=== PATIENT | male | born 1985 | race Hispanic/Latino ===

== ENCOUNTER → 2025-03-25 | Outpatient (REF) | payer BC ==
[~2025-03-25] MED LIST: REGADENOSON 0.4 MG/5 ML SYR IV ONE
== END ==
LOC: NM 08:35
PROVIDERS: ATTEND Internal Medicine Cardiovascular Disease
DX: I49.9 Cardiac arrhythmia, unspecified (principal); I73.9 Peripheral vascular disease, unspecified
CPT/HCPCS: 78452; 93017; A9502; J2785